=== PATIENT | male | born 1950 | race Caucasian/White ===

== ENCOUNTER → 2021-09-04 | Outpatient (CLI) | payer MEDICARE ==
--- NOTE | 2021-09-05 11:00 | ECHOF ---
Referral Reason:R01.1 Cardiac murmur MEASUREMENTS -------- HEIGHT: 172.7 cm WEIGHT: 81.6 kg BP: IVSd: 1.4 cm (0.6 - 1.1) LVIDd: 4.1 cm (3.9 - 5.3) LVPWd: 1.5 cm (0.6 - 1.1) IVSs: 1.7 cm LVIDs: 3.1 cm LVPWs: 1.6 cm LAESV Index (A-L): 25.46 ml/m Ao Diam: 3.1 cm (2.0 - 3.7) AV Cusp: 1.6 cm (1.5 - 2.6) LA Diam: 3.2 cm (2.7 - 3.8) MV EXCURSION: 10.933 mm (> 18.000) MV EF SLOPE: 52 mm/s (70 - 150) EPSS: 0.3 cm MV E Jim: 0.53 m/s MV DecT: 193 ms MV A Jim: 0.93 m/s MV E/A Ratio: 0.57 RAP: 5.00 mmHg RVSP: 22.99 mmHg FINDINGS -------- Sinus rhythm. This was a technically good study. The left ventricular size is normal. There is moderate concentric left ventricular hypertrophy. O verall left ventricular systolic function is low-normal with, an EF between 50 - 55 %. The right ventricle is normal in size. The left atrial size is normal. The right atrial size is normal. There is mild aortic valve sclerosis. There is no evidence of aortic regurgitation. Mild mitral regurgitation is present. Mild tricuspid regurgitation present. Right ventricular systolic pressure is normal at < 35 mmHg. The pulmonic valve was not well visualized. There is no pericardial effusion. CONCLUSIONS -------- 1. The left ventricular size is normal. 2. There is moderate concentric left ventricular hypertrophy. 3. Overall left ventricular systolic function is low-normal with, an EF between 50 - 55 %. 4. The right ventricle is normal in size. 5. The left atrial size is normal. 6. The right atrial size is normal. 7. There is mild aortic valve sclerosis. 8. Mild mitral regurgitation is present. 9. Mild tricuspid regurgitation present. 10. The pulmonic valve was not well visualized. 11. There is no pericardial effusion. NUTRITION HELPER: Huma June RDCS
== END | disposition home or self-care (01) ==
LOC: RADECHMAIN 16:23
PROVIDERS: ATTEND Family Medicine
DX: I08.3 Combined rheumatic disorders of mitral, aortic and tricuspid valves (principal)
CPT/HCPCS: 93306

== ENCOUNTER → 2021-09-09 | Outpatient (CLI) | payer MEDICARE ==
--- NOTE | 2021-09-09 10:24 | CTL ---
EXAMINATION TYPE: CT Low Dose Lung DATE OF EXAM ORDERED: 09/09/2021 HISTORY: 71-year-old male cough, history of tobacco use. Z87.891 Personal history of tobacco use. Chang g cancer screening CT DLP: 106.[address] CTDI: 2.8 mGy Automated exposure control for dose reduction was used. SCREENING VISIT: Baseline COMPARISON: None TECHNIQUE: Low dose computed tomography scan was performed through the chest with coronal and sagitta l reconstructions. CT DIAGNOSTIC QUALITY: Satisfactory FINDINGS: Heart normal size without pericardial effusion. Scattered three-vessel coronary artery calcifications are present. Mild ectasia ascending aorta 3.6 cm. Mild ectasia upper descending thoracic aorta 3.3 cm. Mild athero sclerotic arch calcifications. The metatarsal tarsal branching anatomy. No thoracic lymphadenopathy by CT size criteria. Scattered strandy areas of atelectasis such as within the inferior lingula and posterior right upper lobe. Mild diffuse bronchial wall thickening. Minimal centrilobular emphysema. Tiny calcified granulo ma at the left base. No suspicious greater than 4 mm pulmonary nodule seen. Tiny hiatal hernia. Slightly diminished attenuation of the hepatic parenchyma suggesting fatty infiltration. Bones: [facility] throughout the mid and lower thoracic spine. IMPRESSION: 1. LungRADS 2, Benign - a tiny calcified granuloma at the left base. Minimal strandy areas of atelect asis. 2. COPD with minimal emphysema. Recommend smoking cessation. 3. Three-vessel coronary artery calcifications. CT LUNG RAD AND CT CHEST RECOMMENDATION: Lung-Rad 2 Benign Appearance or Behavior: Continue annual sc reening with LDCT in 12 months.
== END | disposition home or self-care (01) ==
LOC: RADCTMAIN 07:28
PROVIDERS: ATTEND Family Medicine
DX: Z12.2 Encounter for screening for malignant neoplasm of respiratory organs (principal); J43.9 Emphysema, unspecified; I25.10 Atherosclerotic heart disease of native coronary artery without angina pectoris; J84.10 Pulmonary fibrosis, unspecified; J98.11 Atelectasis; Z87.891 Personal history of nicotine dependence
CPT/HCPCS: 71271

== ENCOUNTER 2022-09-23 21:58 | Inpatient (IN) | payer MEDICARE ==
[2022-09-23] MEDS ORDERED: SODIUM CHLORIDE 0.9% 500 ML 500 ML IV STA (22:41)
[2022-09-23] MEDS ORDERED: HYDROmorphone 0.5 MG/0.5 ML SYRINGE IVP STA ×2 (22:42→23:45)
--- NOTE | 2022-09-23 22:46 | ED ---
"Abdominal Pain HPI - General Chief Complaint: Abdominal Pain Stated Complaint: Abd Pain Time Seen by Provider: 09/23/22 22:34 Source: patient, family, RN notes reviewed, old records reviewed Mode of arrival: ambulatory Limitations: no limitations - History of Present Illness Initial Comments: 72-year-old male presents with family complaining of diffuse abdominal pain since New Year'. Has not had bowel movement in several days. Did have a small liquid bowel movement today. One episode of vomiting that looked like phlegm today. Denies any fevers. He states he is also having problems urinating. Family at bedside states he had catheters left over from his father that they tried to insert but the patient could not tolerate the pain. He has a history of hypertension and GERD. He is a smoker. No previous surgical history. MD Complaint: abdominal pain -: days(s) (3) Location: diffuse Radiation: none Severity scale (1-10): 9 Quality: fullness Consistency: constant Worsens With: nothing Associated Symptoms: nausea, vomiting (once today), constipation Treatments Prior to Arrival: other (tried urinary catheter) - Related Data Allergies Allergy/AdvReac Type Severity Reaction Status Date / Time No Known Allergies Allergy Verified 09/23/22 22:20 Review of Systems ROS Statement: Those systems with pertinent positive or pertinent negative responses have been documented in the HPI. ROS Other: All systems not noted in ROS Statement are negative. Past Medical History Past Medical History: GERD/Reflux, Hypertension Past Surgical History: No Surgical Hx Reported Smoking Status: Current every day smoker Past Alcohol Use History: Daily Past Drug Use History: None Reported General Exam Limitations: no limitations General appearance: alert, in no apparent distress Head exam: Present: atraumatic, normocephalic Eye exam: Absent: conjunctival injection, periorbital swelling Neck exam: Absent: tenderness, meningismus Respiratory exam: Present: normal lung sounds bilaterally. Absent: respiratory distress, wheezes, rales, rhonchi, stridor, chest wall tenderness, accessory muscle use Cardiovascular Exam: Present: regular rate GI/Abdominal exam: Present: soft, distended, tenderness. Absent: guarding, rigid Extremities exam: Present: full ROM, normal capillary refill. Absent: tenderness, pedal edema, calf tenderness Back exam: Absent: tenderness, CVA tenderness (R), CVA tenderness (L), rash noted Neurological exam: Present: alert, oriented X3 Psychiatric exam: Present: normal affect, normal mood Skin exam: Present: warm, dry, normal color. Absent: cyanosis, diaphoretic, petechiae, pallor Course Vital Signs 09/23/22 22:14 Temperature 98.0 F Pulse Rate 81 Respiratory 18 Rate Blood Pressure 172/101 O2 Sat by Pulse 97 Oximetry Medical Decision Making - Medical Decision Making CT interpreted by me shows a markedly distended bladder, no intestinal obstruction. Radiologist's interpretation marked dilated urinary bladder with retroperitoneal edema in bilateral hydronephrosis and hydroureter. No stones seen. Consistent with chronic bladder outlet obstruction. Prostate is large and measures 6 cm. No evidence of leukocytosis patient denies any fevers. Urinalysis does show evidence of urinary tract infection therefore patient will be given Rocephin. |Patient will be admitted to the hospital with YUNI, urinary retention with hydronephrosis and perinephric edema. Urology was placed on consult Patient is agreeable to this plan of care. Case discussed with Dr. Hills Was pt. sent in by a medical professional or institution? @ -No Did you speak to anyone other than the patient for history? @ -Family Did you review nursing and triage notes? @ -Yes I agree Were old charts reviewed? @ -Yes previous labs Differential Diagnosis? @ -Differential Abdominal Pain Men: Appendicitis, cholecystitis, diverticulosis, ischemic bowel, pancreatitis, hepatitis, UTI, gastroenteritis, AAA, incarcerated hernia, bowel obstruction, constipation, inflammatory bowel, hepatitis, peptic ulcer disease, splenic infarction, perforated viscus, testicular torsion, this is not meant to be an all-inclusive list EKG interpreted by me (3pts min.)? @ -Not applicable X-rays interpreted by me (1pt min.)? @ -Not applicable CT interpreted by me (1pt min.)? @ -Yes see above U/S interpreted by me (1pt. min.)? @ -Not applicable What testing was considered but not performed? (CT, X-rays, U/S, labs)? Why? @CT with contrast was considered however patient states that his primary care doctor has been watching his renal function, patient found to have YUNI What meds were considered but not given? Why? @ -None Did you discuss the management of the patient with other professionals? @ -No Did you reconcile home meds? @ -No Was smoking cessation discussed for >3mins.? @ -Yes patient states that he did quit the first of the year Was critical care preformed (if so, how long)? @ -No Were there social determinants of health that impacted care today? How? (Homelessness, low income, unemployed, alcoholism, drug addiction, transportation, low edu. Level, literacy, decrease access to med. care, fdc, rehab)? @ -None Was there de-escalation of care discussed even if they declined? (Discuss DNR or withdrawal of care, Hospice)? @ -None What co-morbidities impacted this encounter? (DM, HTN, Smoking, COPD, CAD, C ancer, CVA, Hep., AIDS, mental health diagnosis, sleep apnea, morbid obesity)? @ -Smoking, hypertension Was patient admitted / discharged? @ -Admitted Undiagnosed new problem with uncertain prognosis? @ -Urinary retention, acute kidney injury Drug Therapy requiring intensive monitoring for toxicity (Heparin, Nitro, Insulin, Cardizem)? @ -No Were any procedures done? @ -No Diagnosis/symptom? @ -Urinary retention, acute kidney injury, hydronephrosis bilateral Acute, or Chronic, or Acute on Chronic? @ -Acute Uncomplicated (without systemic symptoms) or Complicated (systemic symptoms)? @ -[default] Side effects of treatment? @ -[none] Exacerbation, Progression, or Severe Exacerbation] @ -[no] Poses a threat to life or bodily function? @ -[no] - Lab Data Result diagrams: 09/23/22 23:12 09/23/22 23:12 Lab Results 09/23/22 09/23/22 09/23/22 Range/Units 22:47 23:12 23:12 WBC 12.0 H (3.8-10.6) k/uL RBC 4.24 L (4.30-5.90) m/uL Hgb 13.7 (13.0-17.5) gm/dL Hct 39.5 (39.0-53.0) % MCV 93.0 (80.0-100.0) fL MCH 32.3 (25.0-35.0) pg MCHC 34.7 (31.0-37.0) g/dL RDW 12.5 (11.5-15.5) % Plt Count 212 (150-450) k/uL MPV 8.2 Neutrophils % 76 % Lymphocytes % 13 % Monocytes % 8 % Eosinophils % 2 % Basophils % 0 % Neutrophils # 9.1 H (1.3-7.7) k/uL Lymphocytes # 1.6 (1.0-4.8) k/uL Monocytes # 0.9 (0-1.0) k/uL Eosinophils # 0.2 (0-0.7) k/uL Basophils # 0.1 (0-0.2) k/uL PT 10.0 (9.0-12.0) sec INR 0.9 (<1.2) APTT 23.8 (22.0-30.0) sec Sodium (137-145) mmol/L Potassium (3.5-5.1) mmol/L Chloride (98-107) mmol/L Carbon Dioxide (22-30) mmol/L Anion Gap mmol/L BUN (9-20) mg/dL Creatinine (0.66-1.25) mg/dL Est GFR (CKD-EPI)AfAm (>60 ml/min/1.73 sqM) Est GFR (CKD-EPI)NonAf (>60 ml/min/1.73 sqM) Glucose (74-99) mg/dL Plasma Lactic Acid Jesse (0.7-2.0) mmol/L Calcium (8.4-10.2) mg/dL Magnesium (1.6-2.3) mg/dL Total Bilirubin (0.2-1.3) mg/dL AST (17-59) U/L ALT (4-49) U/L Alkaline Phosphatase (38-126) U/L Total Protein (6.3-8.2) g/dL Albumin (3.5-5.0) g/dL Amylase (30-110) U/L Lipase (23-300) U/L Urine Color Yellow Urine Appearance Clear (Clear) Urine pH 5.5 (5.0-8.0) Ur Specific [place] 1.011 (1.001-1.035) Urine Protein Negative (Negative) Urine Glucose (UA) Negative (Negative) Urine Ketones Negative (Negative) Urine Blood Trace H (Negative) Urine Nitrite Negative (Negative) Urine Bilirubin Negative (Negative) Urine Urobilinogen <2.0 (<2.0) mg/dL Ur Leukocyte Esterase Small H (Negative) Urine RBC 1 (0-5) /hpf Urine WBC 6 H (0-5) /hpf Urine WBC Clumps Rare H (None) /hpf Ur Squamous Epith Cells <1 (0-4) /hpf Urine Bacteria Rare H (None) /hpf Hyaline Casts 1 (0-2) /lpf Urine Mucus Rare H (None) /hpf 09/23/22 09/23/22 Range/Units 23:12 23:12 WBC (3.8-10.6) k/uL RBC (4.30-5.90) m/uL Hgb (13.0-17.5) gm/dL Hct (39.0-53.0) % MCV (80.0-100.0) fL MCH (25.0-35.0) pg MCHC (31.0-37.0) g/dL RDW (11.5-15.5) % Plt Count (150-450) k/uL MPV Neutrophils % % Lymphocytes % % Monocytes % % Eosinophils % % Basophils % % Neutrophils # (1.3-7.7) k/uL Lymphocytes # (1.0-4.8) k/uL Monocytes # (0-1.0) k/uL Eosinophils # (0-0.7) k/uL Basophils # (0-0.2) k/uL PT (9.0-12.0) sec INR (<1.2) APTT (22.0-30.0) sec Sodium 134 L (137-145) mmol/L Potassium 4.1 (3.5-5.1) mmol/L Chloride 101 (98-107) mmol/L Carbon Dioxide 19 L (22-30) mmol/L Anion Gap 14 mmol/L BUN 38 H (9-20) mg/dL Creatinine 3.38 H (0.66-1.25) mg/dL Est GFR (CKD-EPI)AfAm 20 (>60 ml/min/1.73 sqM) Est GFR (CKD-EPI)NonAf 17 (>60 ml/min/1.73 sqM) Glucose 149 H (74-99) mg/dL Plasma Lactic Acid Jesse 1.1 (0.7-2.0) mmol/L Calcium 9.4 (8.4-10.2) mg/dL Magnesium 2.2 (1.6-2.3) mg/dL Total Bilirubin 1.1 (0.2-1.3) mg/dL AST 50 (17-59) U/L ALT 34 (4-49) U/L Alkaline Phosphatase 62 (38-126) U/L Total Protein 7.4 (6.3-8.2) g/dL Albumin 4.6 (3.5-5.0) g/dL Amylase 78 (30-110) U/L Lipase 193 (23-300) U/L Urine Color Urine Appearance (Clear) Urine pH (5.0-8.0) Ur Specific [place] (1.001-1.035) Urine Protein (Negative) Urine Glucose (UA) (Negative) Urine Ketones (Negative) Urine Blood (Negative) Urine Nitrite (Negative) Urine Bilirubin (Negative) Urine Urobilinogen (<2.0) mg/dL Ur Leukocyte Esterase (Negative) Urine RBC (0-5) /hpf Urine WBC (0-5) /hpf Urine WBC Clumps (None) /hpf Ur Squamous Epith Cells (0-4) /hpf Urine Bacteria (None) /hpf Hyaline Casts (0-2) /lpf Urine Mucus (None) /hpf Disposition Clinical Impression: Urinary retention, Acute kidney injury Disposition: ADMITTED IP TO THIS HOSP Referrals: Roxanne De Luna MD [Primary Care Provider] - 1-2 days Decision Date: 09/23/22 Decision Time: 23:50"
[2022-09-23] MEDS ORDERED: PANTOPRAZOLE 40 MG/10 ML VIAL IVP STA (22:47)
[2022-09-23] MEDS ORDERED: ONDANSETRON 4 MG/2 ML VIAL IVP STA (22:47)
[2022-09-23 23:35] LABS: Basophils # (A) 0.1 k/uL (0-0.2); Basophils % (A) 0 %; Eosinophils # (A) 0.2 k/uL (0-0.7); Eosinophils % (A) 2 %; HCT 39.5 % (39.0-53.0); HGB 13.7 gm/dL (13.0-17.5); Lymphocytes # (A) 1.6 k/uL (1.0-4.8); Lymphocytes % (A) 13 %; MCH 32.3 pg (25.0-35.0); MCHC 34.7 g/dL (31.0-37.0); Mean Platelet Volume 8.2; Monocytes # (A) 0.9 k/uL (0-1.0); Monocytes % (A) 8 %; Neutrophils # (A) 9.1 k/uL (1.3-7.7); Neutrophils % (A) 76 %; Platelet Count 212 k/uL (150-450); RBC 4.24 m/uL (4.30-5.90); RDW 12.5 % (11.5-15.5)
--- NOTE | 2022-09-23 23:42 | CT ---
EXAMINATION TYPE: CT abdomen pelvis wo con DATE OF EXAM: 09/23/2022 COMPARISON: None HISTORY: left lower abd pain CT DLP: 649.6 mGycm Automated exposure control for dose reduction was used. Images obtained of the abdomen and pelvis without contrast. Lung bases are clear. No pleural effusion. Heart size is normal. No pericardial effusion. Liver splee n and stomach pancreas, bladder appear intact. The bile ducts are not dilated. There is no adrenal mass. There is bilateral hydronephrosis and perinephric edema. There is retroperi toneal fat stranding. Urinary bladder is moderately dilated and measures 22 cm. No inguinal hernia. T here is some presacral edema. No pelvic mass. There is no mesenteric edema. No ascites or free air. No sign of a bowel obstruction. Appendix appear s normal. The lumbar vertebra show normal alignment. There is degenerative disc space narrowing from L3 to S1 w ith spurring and vacuum disc. There is posterior disc herniations from L2 to L5. There is mild lobula r level spinal stenosis. Bony pelvis is intact. The hip joints are intact. IMPRESSION: There is markedly dilated urinary bladder. There is retroperitoneal edema and bilateral hydronephrosi s and hydroureter. No stone seen. This is consistent with chronic bladder outlet obstruction. Prostate is large and measures 6 cm. Multilevel spondylotic changes and lumbar spinal stenosis.
[2022-09-23 23:44] LABS: INR 0.9 (<1.2); Partial Thromboplastin Time 23.8 sec (22.0-30.0)
[2022-09-23] MEDS ORDERED: LIDOCAINE 2% URO-JET JELLY 5 ML KIT URETHRAL ONE (23:45)
[2022-09-23 23:48] LABS: Albumin 4.6 g/dL (3.5-5.0); Calcium 9.4 mg/dL (8.4-10.2); Magnesium 2.2 mg/dL (1.6-2.3); Potassium 4.1 mmol/L (3.5-5.1); Total Bilirubin 1.1 mg/dL (0.2-1.3); Total Protein 7.4 g/dL (6.3-8.2)
[2022-09-24 00:04] LABS: Appearance,Urine Clear (Clear); Bacteria,Urine Rare /hpf; Bilirubin,Urine Negative (Negative); Blood,Urine Trace (Negative); Color,Urine Yellow; Glucose,Urine (UA) Negative (Negative); Hyaline Casts,Urine 1 /lpf (0-2); Ketones,Urine Negative (Negative); Leukocyte Esterase,Urine Small (Negative); Mucus,Urine Rare /hpf; Nitrite,Urine Negative (Negative); PH, Urine 5.5 (5.0-8.0); Protein,Urine Negative (Negative); RBC,Urine 1 /hpf (0-5); Specific Gravity,Urine 1.011 (1.001-1.035); Squamous Epithelial Cell,Urine <1 /hpf (0-4); Urobilinogen,Urine <2.0 mg/dL (<2.0); WBC,Urine 6 /hpf (0-5)
[2022-09-24] MEDS ORDERED: cefTRIAXone IN SWFI 1,000 MG/10 ML SYRINGE IVP ONE (00:30)
[2022-09-24] MEDS ORDERED: NALOXONE 0.4 MG/ML 1 ML VIAL IV PRN (00:30)
[2022-09-24] MEDS ORDERED: ACETAMINOPHEN TAB 325 MG TAB PO PRN (01:00)
[2022-09-24] MEDS ORDERED: HYDROmorphone 0.5 MG/0.5 ML SYRINGE IVP PRN (01:00)
[2022-09-24] MEDS ORDERED: TAMSULOSIN 0.4 MG CAP.ER.24H PO SCH (09:15)
--- NOTE | 2022-09-24 09:24 | P.GSCN ---
History of Present Illness Consult date: 09/24/22 Reason for Consult: Urinary retention Requesting physician: Jaswant Yousif History of present illness: The patient is a 72-year-old male with a past medical history significant for hypertension, and GERD. He presented to the emergency department on 09/23/22 with diffuse abdominal pain for 3 days and associated nausea and vomiting. He has not had a bowel movement in several days. Abdomen/pelvis CT revealed a markedly dilated urinary bladder. There is retroperitoneal edema and bilateral hydronephrosis and hydroureter. No stones were seen. The prostate is large and measures 6 cm. A Huang catheter was placed with 1,575 mL urine returned. Review of Systems - Constitutional Denies chills, Denies fever - Cardiovascular Denies chest pain, Denies shortness of breath - Respiratory Denies cough - Gastrointestinal Reports abdominal pain, Reports constipation, Reports nausea, Reports vomiting - Genitourinary Reports nocturia, Reports urinary hesitancy, Reports urinary retention, Denies dysuria, Denies flank pain, Denies hematuria Past Medical History Past Medical History: GERD/Reflux, Hypertension Past Surgical History: No Surgical Hx Reported Smoking Status: Current every day smoker Past Alcohol Use History: Daily Past Drug Use History: None Reported Medications and Allergies Home Medications Medication Instructions Recorded Confirmed Type Acetaminophen Tab [Tylenol] 650 mg PO Q6HR PRN tab 09/24/22 Rx Cefuroxime [Ceftin] 500 mg PO BID 5 Days #10 tab 09/24/22 Rx Omeprazole [PriLOSEC] 20 mg PO DAILY 09/24/22 09/24/22 History Sennosides [Senokot] 8.6 mg PO BID PRN #30 tablet 09/24/22 Rx Tamsulosin [Flomax] 0.4 mg PO PC-BRKFST 30 Days #30 cap 09/24/22 Rx amLODIPine [Norvasc] 10 mg PO DAILY 30 Days #30 tablet 09/24/22 Rx Allergies Allergy/AdvReac Type Severity Reaction Status Date / Time No Known Allergies Allergy Verified 09/24/22 08:19 Surgical - Exam Vital Signs Temp Pulse Resp BP Pulse Ox 98.0 F 81 18 172/101 97 09/23/22 22:14 09/23/22 22:14 09/23/22 22:14 09/23/22 22:14 01/03/23 22:14 General: Well developed, well nourished. No acute distress. HEENT: Head is atraumatic, normocephalic. Lungs: Respirations even and nonlabored. Abdomen/GI: Soft. No guarding, rigidity, or abdominal tenderness. : No suprapubic tenderness. Huang catheter draining clear yellow urine Skin: Warm and dry Neurologic: Awake, alert and oriented times 3. CN II-XII grossly intact. No focal deficits. Psychiatric: Appropriate mood and affect. Results - Labs 09/23/22 23:12 09/24/22 12:32 Abnormal Lab Results - Last 24 Hours (Table) 09/23/22 09/23/22 09/23/22 Range/Units 22:47 23:12 23:12 WBC 12.0 H (3.8-10.6) k/uL RBC 4.24 L (4.30-5.90) m/uL Neutrophils # 9.1 H (1.3-7.7) k/uL Sodium 134 L (137-145) mmol/L Carbon Dioxide 19 L (22-30) mmol/L BUN 38 H (9-20) mg/dL Creatinine 3.38 H (0.66-1.25) mg/dL Glucose 149 H (74-99) mg/dL Urine Blood Trace H (Negative) Ur Leukocyte Esterase Small H (Negative) Urine WBC 6 H (0-5) /hpf Urine WBC Clumps Rare H (None) /hpf Urine Bacteria Rare H (None) /hpf Urine Mucus Rare H (None) /hpf Diabetes panel 09/23/22 Range/Units 23:12 Sodium 134 L (137-145) mmol/L Potassium 4.1 (3.5-5.1) mmol/L Chloride 101 (98-107) mmol/L Carbon Dioxide 19 L (22-30) mmol/L BUN 38 H (9-20) mg/dL Creatinine 3.38 H (0.66-1.25) mg/dL Glucose 149 H (74-99) mg/dL Calcium 9.4 (8.4-10.2) mg/dL AST 50 (17-59) U/L ALT 34 (4-49) U/L Alkaline Phosphatase 62 (38-126) U/L Total Protein 7.4 (6.3-8.2) g/dL Albumin 4.6 (3.5-5.0) g/dL Calcium panel 09/23/22 Range/Units 23:12 Calcium 9.4 (8.4-10.2) mg/dL Albumin 4.6 (3.5-5.0) g/dL Pituitary panel 09/23/22 Range/Units 23:12 Sodium 134 L (137-145) mmol/L Potassium 4.1 (3.5-5.1) mmol/L Chloride 101 (98-107) mmol/L Carbon Dioxide 19 L (22-30) mmol/L BUN 38 H (9-20) mg/dL Creatinine 3.38 H (0.66-1.25) mg/dL Glucose 149 H (74-99) mg/dL Calcium 9.4 (8.4-10.2) mg/dL Adrenal panel 09/23/22 Range/Units 23:12 Sodium 134 L (137-145) mmol/L Potassium 4.1 (3.5-5.1) mmol/L Chloride 101 (98-107) mmol/L Carbon Dioxide 19 L (22-30) mmol/L BUN 38 H (9-20) mg/dL Creatinine 3.38 H (0.66-1.25) mg/dL Glucose 149 H (74-99) mg/dL Calcium 9.4 (8.4-10.2) mg/dL Total Bilirubin 1.1 (0.2-1.3) mg/dL AST 50 (17-59) U/L ALT 34 (4-49) U/L Alkaline Phosphatase 62 (38-126) U/L Total Protein 7.4 (6.3-8.2) g/dL Albumin 4.6 (3.5-5.0) g/dL - Imaging CT scan - abdomen: report reviewed, image reviewed CT scan - pelvis: report reviewed, image reviewed Assessment and Plan Assessment: The patient was examined in the emergency department. The patient reports urinary hesitancy with an interrupted stream and some leakage. He also feels as if he is not emptying his bladder completely. The patient reports being on Flomax in the past. However, he stopped taking it when he moved to [place] approximately 2 years ago. He previously saw a urologist in [place]. No prior surgeries. His urinalysis does not suggest infection. The patient's serum creatinine is 3.38, up from 1.1 in 07/12. Dr. Elkins performed a digital rectal exam and the prostate is approximately 40g. The patient's YUNI and bilateral hydronephrosis is likely a result of outlet obstruction caused by his enlarged prostate. Plan: - Start Flomax - Keep Huang catheter for a couple days - Voiding trial before discharge - Monitor serum creatinine Thank you for this consultation Impression and plan of care have been directed as dictated by the signing physician. Yeni Burnett nurse practitioner acting as scribe for signing physician. Yeni Bunrett [facility] Palliative Care/Urology Spectralink [phone] Email: [email or web address] The above patient has been interviewed and examined. I agree with the above findings by Yeni Burnett. Ángel Elkins MD
[2022-09-24 13:31] LABS: African American GFR (CKD) 43 (>60 ml/min/1.73 sqM); Anion Gap 4 mmol/L; Blood Urea Nitrogen 30 mg/dL (9-20); Carbon Dioxide 26 mmol/L (22-30); Chloride 107 mmol/L (98-107); Glucose 72 mg/dL (74-99); Non-African American GFR(CKD) 37 (>60 ml/min/1.73 sqM); Potassium 4.3 mmol/L (3.5-5.1); Sodium 137 mmol/L (137-145)
[2022-09-24 14:34] VITALS: BP 131/72; PULSE 76; RESP 18; TEMP 98.7
--- NOTE | 2022-09-24 18:24 | HP ---
HISTORY AND PHYSICAL This is a combined History and Physical and Discharge Summary. CHIEF COMPLAINT: Abdominal pain. HISTORY OF PRESENT ILLNESS: This is a 72-year-old gentleman with a past medical history of GERD and hypertension, who was admitted with abdominal pain. The patient was evaluated, and CT scan of the abdomen and pelvis showed markedly dilated urinary bladder and bilateral hydronephrosis and hydroureter. Urology saw the patient. A catheter was inserted, and Urology cleared the patient for discharge. The patient is extremely keen on going home. Also, creatinine is elevated. There is no history of any fever, rigors, or chills at this time. The patient's abdomen is much better. PAST MEDICAL HISTORY: Reviewed includes GERD and hypertension. Rest of the history and rest of the medications are reviewed. HOME MEDICATIONS: Reviewed include losartan and Keflex antibiotic. Rest of the medications are reviewed. ALLERGIES: None. FAMILY HISTORY: No history of heart disease or strokes in the family. SOCIAL HISTORY: History of current smoking. Alcohol daily. REVIEW OF SYSTEMS: Fourteen-point review is negative except as mentioned earlier. PHYSICAL EXAMINATION: VITAL SIGNS: Pulse is 71, blood pressure 144/80, respirations 16. HEENT: Conjunctivae are normal. NECK: No jugular venous distention. CARDIOVASCULAR: S1 and S2 muffled. RESPIRATORY: Breath sounds diminished at the bases. Few scattered rhonchi. ABDOMEN: Soft and nontender. No masses palpable. LEGS: No edema. NERVOUS SYSTEM: No focal deficits. SKIN: No ulcers or rashes. JOINTS: No active deforming arthropathy. LABORATORY DATA: WBC 12. The rest of the labs are noted. ASSESSMENT: 1. Acute obstructive uropathy. 2. Acute renal failure secondary to obstructive uropathy. 3. Acute urinary tract infection. 4. Gastroesophageal reflux disease. 5. Hypertension. 6. History of nicotine dependence. 7. History of possible EtOH. RECOMMENDATIONS: This is a 72-year-old gentleman, who presented with multiple complex medical issues. I recommend to continue the current medications and symptomatic treatment, continue with Flomax, and continue with indwelling Huang catheter. As mentioned earlier, the patient is extremely keen on going home and not willing to stay. I would recommend close followup with Nephrology and Urology as well as Dr. De Luna in the outpatient setting. Avoid nephrotoxic medications. Continue short course of antibiotics. Repeat labs, CBC and BMP. Continue to monitor. Once again, prognosis is guarded. Further recommendations to follow. Recommend close outpatient followup. Urology already cleared the patient for discharge. MMODL / IJN: [id number] /
== END 2022-09-24 14:34 | disposition home or self-care (01) | DRG 690 ==
LOC: EC 21:58 → 5NMEDONC 23:54
PROVIDERS: ADMIT Hospitalist; ATTEND Hospitalist
PROC: 0T9B70Z Drainage of Bladder with Drainage Device, Via Natural or Artificial Opening (ICD-10-PCS; principal; 2022-09-23)
DX: N13.6 Pyonephrosis (principal); N17.9 Acute kidney failure, unspecified; I10 Essential (primary) hypertension; N32.0 Bladder-neck obstruction; Z79.899 Other long term (current) drug therapy; N40.1 Benign prostatic hyperplasia with lower urinary tract symptoms; R33.8 Other retention of urine; K21.9 Gastro-esophageal reflux disease without esophagitis; F17.210 Nicotine dependence, cigarettes, uncomplicated; Z86.59 Personal history of other mental and behavioral disorders
CPT/HCPCS: 36415; 51702; 51798; 74176; 80048; 80053; 81001; 82150; 83605; 83690; 83735; 85025; 85610; 85730; 96361; 96374; 96375; 99285; 99406

== ENCOUNTER → 2022-09-30 | Outpatient (CLI) | payer MEDICARE ==
[2022-09-30 14:16] LABS: Basophils # (A) 0.07 X 10*3/uL (0.00-0.10); Basophils % (A) 1.1 %; Eosinophils # (A) 0.28 X 10*3/uL (0.04-0.35); Eosinophils % (A) 4.5 %; HCT 39.9 % (39.6-50.0); HGB 12.9 g/dL (13.0-17.0); Immature Grans, Automated 0.6 %; Lymphocytes # (A) 2.19 X 10*3/uL (0.90-5.00); Lymphocytes % (A) 34.8 %; MCH 31.3 pg (27.0-32.0); MCHC 32.3 g/dL (32.0-37.0); MCV 96.8 fL (80.0-97.0); Monocytes # (A) 0.67 X 10*3/uL (0.20-1.00); Monocytes % (A) 10.7 %; NRBC Per 100 WBC 0 /100 WBCS (0.0-0.0); Neutrophils # (A) 3.04 X 10*3/uL (1.80-7.70); Neutrophils % (A) 48.3 %; Platelet Count 258 X 10*3/uL (140-440); RBC 4.12 X 10*6/uL (4.40-5.60); RDW 12.5 % (11.5-14.5); WBC 6.29 X 10*3/uL (4.50-10.00)
== END | disposition home or self-care (01) ==
LOC: LABWHC1 08:29
PROVIDERS: ATTEND Registered Nurse
DX: D72.829 Elevated white blood cell count, unspecified (principal); R79.89 Other specified abnormal findings of blood chemistry
CPT/HCPCS: 36415; 85025

== ENCOUNTER → 2022-10-02 | Outpatient (CLI) | payer MEDICARE ==
--- NOTE | 2022-10-02 09:57 | CTL ---
EXAMINATION TYPE: CT Low Dose Lung DATE OF EXAM ORDERED: 10/02/2022 HISTORY: [facility] tobacco use. Lung cancer screening CT DLP: 94.[address] CTDI: 2.7 mGy Automated exposure control for dose reduction was used. SCREENING VISIT: First after baseline. COMPARISON: Prior study 2020. TECHNIQUE: Low dose computed tomography scan was performed through the chest at 1 mm thick sections a nd reconstructed images in multiple planes at 1 mm and [address] DIAGNOSTIC QUALITY: Satisfactory FINDINGS: LUNG NODULES: Present, detailed below: A few scattered small nodules are seen. For reference is a 2 mm peripheral left lower lobe nodule axi al image 198. There is additional 2 mm calcified nodule or benign granuloma left lung base on axial i mage 215. No significant greater than 5 mm noncalcified pulmonary nodules LUNGS: COPD: Severity: Mild Fibrosis: Severity: Minimal Lymph nodes: No greater than 1 cm Other findings: None RIGHT PLEURAL SPACE: Effusion: None Calcification: None Thickening: None Pneumothorax: None LEFT PLEURAL SPACE: Effusion: None Calcification: None Thickening: None Pneumothorax: None HEART: Heart Size: Normal Coronary Calcification: Moderate to severe three-vessel Pericardial Effusion: None OTHER FINDINGS: Upper abdomen: The liver remains slightly hypodense suggesting diffuse fatty infiltration. Bony thorax: Multilevel spurring in the thoracic spine is redemonstrated. Supraclavicular region: None Other: None IMPRESSION: Mild emphysematous change without significant new or enlarging greater than 5 [address] pulmonar y nodules. CT LUNG RAD AND CT CHEST RECOMMENDATION: Lung-Rad 2 Benign Appearance or Behavior: Continue annual sc reening with LDCT in 12 months. S Modifier (other clinically significant findings): S Persistent moderate to severe three-vessel coronary artery calcification which should be correlated w ith additional cardiac risk factors
== END | disposition home or self-care (01) ==
LOC: RADCTMAIN 08:01
PROVIDERS: ATTEND Family Medicine
DX: Z12.2 Encounter for screening for malignant neoplasm of respiratory organs (principal); Z87.891 Personal history of nicotine dependence; J43.2 Centrilobular emphysema
CPT/HCPCS: 71271

== ENCOUNTER → 2023-02-12 | Outpatient (CLI) | payer MEDICARE ==
--- NOTE | 2023-02-12 15:04 | US ---
EXAMINATION TYPE: US venous doppler duplex LE RT DATE OF EXAM: 02/12/2023 2:56 PM COMPARISON: NONE CLINICAL INDICATION: Male, 72 years old with history of R22.41 SWELLING, MASS AND LUMP; No injury. Sw elling x 1 week. Pain x 1 day. No hx of DVT. Patient does not take blood thinners. SIDE PERFORMED: Right TECHNIQUE: The lower extremity deep venous system is examined utilizing real time linear array sonog elyse with graded compression, doppler sonography and color-flow sonography. VESSELS IMAGED: Common Femoral Vein Deep Femoral Vein Greater Saphenous Vein * Femoral Vein Popliteal Vein Small Saphenous Vein * Proximal Calf Veins Posterior tibial veins (* superficial vessels) Right Leg: No evidence of DVT at this time. Anechoic fluid-appearing area seen within the medial, mid calf: 2.2 x 2.2 x 0.4 cm. Calf edema noted. IMPRESSION: 1. Small Mclaughlin cyst suggested measuring 2.2 x 0.4 cm. Additional edematous change within the calf sof t tissues. Consider the possibility of a ruptured Mcluaghlin's cyst. 2. No evidence for DVT within the right lower extremity.
== END | disposition home or self-care (01) ==
LOC: RADUSWWP 14:10
PROVIDERS: ATTEND Family Medicine
DX: R22.41 Localized swelling, mass and lump, right lower limb (principal)

== ENCOUNTER → 2023-02-27 | Outpatient (CLI) | payer MEDICARE ==
--- NOTE | 2023-02-27 13:36 | US ---
EXAMINATION TYPE: US venous doppler duplex LE RT DATE OF EXAM: 02/27/2023 1:09 PM COMPARISON: Recent US 02/12/2023 CLINICAL INDICATION: Male, 72 years old with history of RLE; M79.661; R22.41; Increasing right leg pa in and swelling SIDE PERFORMED: Right TECHNIQUE: The lower extremity deep venous system is examined utilizing real time linear array sonog elyse with graded compression, doppler sonography and color-flow sonography. VESSELS IMAGED: Common Femoral Vein Deep Femoral Vein Greater Saphenous Vein * Femoral Vein Popliteal Vein Small Saphenous Vein * Proximal Calf Veins (* superficial vessels) Right Leg: Negative for DVT, fluid collection posterior/medial right calf has significantly increase d in size when compared to prior= 11.7 x 2.4 x 8.6 cm- this in area of pt's pain IMPRESSION: Large fluid collection within the posterior medial right calf suspicious for hematoma/se marisela. Consider MRI as clinically warranted for further evaluation. Correlate with history of anticoag ulation.
== END | disposition home or self-care (01) ==
LOC: RADUSWWP 12:45
PROVIDERS: ATTEND Family Medicine
DX: M79.661 Pain in right lower leg (principal); R22.41 Localized swelling, mass and lump, right lower limb

== ENCOUNTER → 2023-03-17 | Outpatient (CLI) | payer MEDICARE ==
--- NOTE | 2023-03-18 10:39 | CA ---
Transthoracic Echo Report Name: Adrián Portillo Age: 72 Gender: M : 1950 Exam Date: 03/17/2023 12:56 Exam Location: [facility] Ht (in): 68 Wt (lb): 180 Ordering Physician: Roxanne De Luna MD Attending/Referring Phys: Cathleen Hammond [facility] Engineering Lecturer Natasha Huang RDCS Procedure CPT: Indications: I34.0 R22.41 Cardiac Hx: Technical Quality: Fair Contrast 1: Total Dose (mL): Contrast 2: Total Dose (mL): MEASUREMENTS (Male / Female) Normal Values 2D ECHO LV Diastolic Diameter PLAX 4.5 cm 4.2 - 5.9 / 3.9 - 5.3 cm LV Systolic Diameter PLAX 2.7 cm IVS Diastolic Thickness 1.2 cm 0.6 - 1.0 / 0.6 - 0.9 cm LVPW Diastolic Thickness 1.2 cm 0.6 - 1.0 / 0.6 - 0.9 cm LV Relative Wall Thickness 0.5 RV Internal Dim ED PLAX 2.9 cm LA Systolic Diameter LX 3.4 cm 3.0 - 4.0 / 2.7 - 3.8 cm LV Diastolic Volume MOD 4C 100.9 cm??? LV Systolic Volume MOD 4C 35.9 cm??? LV Ejection Fraction MOD 4C 64.5 % LV Cardiac Index MOD 4C 2379.1 cm???/min???m??? LV Diastolic Length 4C 8.5 cm LV Systolic Length 4C 6.7 cm LV Diastolic Volume MOD 2C 84.7 cm??? LV Systolic Volume MOD 2C 27.4 cm??? LV Ejection Fraction MOD 2C 67.7 % LV Cardiac Index MOD 2C 2098.0 cm???/min???m??? LV Diastolic Length 2C 8.3 cm LV Systolic Length 2C 6.6 cm LA Volume 50.6 cm??? 18 - 58 / 22 - 52 cm??? M-MODE Aortic Root Diameter MM 3.1 cm MV E Point Septal Separation 0.5 cm AV Cusp Separation MM 1.9 cm DOPPLER AV Peak Velocity 154.7 cm/s AV Peak Gradient 9.6 mmHg MV Area PHT 3.0 cm??? Mitral E Point Velocity 64.8 cm/s Mitral A Point Velocity 111.1 cm/s Mitral E to A Ratio 0.6 MV Deceleration Time 254.5 ms MV E' Velocity 5.1 cm/s Mitral E to MV E' Ratio 12.6 TR Peak Velocity 233.4 cm/s TR Peak Gradient 21.8 mmHg Right Ventricular Systolic Press 26.2 mmHg FINDINGS Left Ventricle Left ventricular ejection fraction is estimated at 55-60 %. Left ventricular cavity size normal. Borderline left ventricular hypertrophy. Normal left ventricular wall motion. Right Ventricle Normal right ventricular size and function. Right ventricular systolic pressure within normal limits. Right Atrium Normal right atrial size. Left Atrium Normal left atrial size. Mitral Valve Structurally normal mitral valve. No mitral stenosis, regurgitation or prolapse. Aortic Valve Aortic valve sclerosis. No aortic valve stenosis or regurgitation. Tricuspid Valve Structurally normal tricuspid valve. Trace tricuspid regurgitation. Pulmonic Valve Structurally normal pulmonic valve. Trace to mild pulmonic regurgitation. Pericardium Normal pericardium. No pericardial effusion. Aorta Normal size aortic root and proximal ascending aorta. CONCLUSIONS Normal LV size and systolic function. Borderline LVH. Mild mitral and tricuspid regurgitation no pericardial effusion no significant pulmonary hypertension Previewed by: Dr. Sergio Longo MD (Electronically Signed) Final Date: 18 March 2023 10:38
== END | disposition home or self-care (01) ==
LOC: RADECHMAIN 12:47
PROVIDERS: ATTEND Family Medicine
DX: I08.1 Rheumatic disorders of both mitral and tricuspid valves (principal); R22.41 Localized swelling, mass and lump, right lower limb
CPT/HCPCS: 93306

== ENCOUNTER → 2023-03-23 | Outpatient (CLI) | payer MEDICARE | END | disposition home or self-care (01) | LOC: LABWHC1 10:51 | PROVIDERS: ATTEND Orthopaedic Surgery | DX: Z53.9 Procedure and treatment not carried out, unspecified reason (principal) ==

== ENCOUNTER → 2023-10-03 | Outpatient (CLI) | payer MEDICARE ==
--- NOTE | 2023-10-04 10:56 | CTL ---
EXAMINATION TYPE: CT Low Dose Lung DATE OF EXAM ORDERED: 10/04/2023 HISTORY: . Lung cancer screening CT DLP: 103.[address] CTDI: 2.80 mGy Automated exposure control for dose reduction was used. SCREENING VISIT: Subsequent COMPARISON: 10/02/2022 TECHNIQUE: Low dose computed tomography scan was performed through the chest at 1 mm thick sections a nd reconstructed images in the coronal plane at [address] DIAGNOSTIC QUALITY: Satisfactory FINDINGS: LUNG NODULES: Present, detailed below: 1. Punctate density posterior lateral left lung, image 206, is stable. 2. Calcification above the left diaphragm is stable. Image 227. LUNGS: COPD: Severity: None Fibrosis: Severity: None Lymph nodes: None Other findings: None RIGHT PLEURAL SPACE: Effusion: None Calcification: None Thickening: None Pneumothorax: None LEFT PLEURAL SPACE: Effusion: None Calcification: None Thickening: None Pneumothorax: None HEART: Heart Size: Normal Coronary calcification: Moderate Pericardial effusion: None OTHER FINDINGS: Upper abdomen: Normal Bony thorax: No Supraclavicular region: Normal Other: Ascending thoracic aorta at the level the main pulmonary artery measures 3.7 cm. The main pul monary artery at the bifurcation measures 2.4 cm. IMPRESSION: 1. No suspicious change suggest primary or metastatic disease. FOLLOW UP CT CHEST RECOMMENDATION: Follow-up low-dose CT chest one year CT LUNG RAD: Lung-Rad 2 Benign Appearance or Behavior
== END | disposition home or self-care (01) ==
LOC: RADCTMAIN 07:46
PROVIDERS: ATTEND Family Medicine
DX: Z12.2 Encounter for screening for malignant neoplasm of respiratory organs (principal); F17.210 Nicotine dependence, cigarettes, uncomplicated
CPT/HCPCS: 71271

== ENCOUNTER → 2024-03-22 | Outpatient (CLI) | payer MEDICARE ==
--- NOTE | 2024-03-22 09:37 | US ---
EXAMINATION TYPE: US Aorta Screening DATE OF EXAM: 03/22/2024 COMPARISON: CT abdomen and pelvis 09/23/2022 CLINICAL INDICATION: Male, 73 years old with history of Z13.6 ENCOUNTER FOR SCREENING FOR CARDIOVASCU LAR D; AAA screening TECHNIQUE: Multiple sonographic images of the abdominal aorta are obtained. FINDINGS: EXAM MEASUREMENTS: Abdominal Aorta: Proximal: 1.9 x 2.1 cm Mid: 2.2 x 2.9 cm Distal: 1.8 x 1.7 cm Bifurcation: Right Iliac: 1.2 cm Left Iliac: 1.3 cm NOZZLE CEMENT SPRAYER HELPER NOTES: IMPRESSION: Ectasia of the mid abdominal aorta measuring up to 2.9 cm without criteria for abdominal aortic aneur ysm.
== END | disposition home or self-care (01) ==
LOC: RADUSWWP 08:50
PROVIDERS: ATTEND Family Medicine
DX: Z13.6 Encounter for screening for cardiovascular disorders (principal); I77.811 Abdominal aortic ectasia; Z87.891 Personal history of nicotine dependence
CPT/HCPCS: 76706

== ENCOUNTER → 2024-04-06 | Outpatient (CLI) | payer MEDICARE ==
--- NOTE | 2024-04-24 23:02 | P.PCN ---
Date of Procedure: 04/06/24 Operative Findings: Home sleep study testing Date of service is 04/06/2024 Pertinent history This is a 73-year-old male patient presented with excessive fatigue and tiredness for the past 2 years. No symptoms followed a previous COVID-19 infection and has not improved since. Home sleep study was ordered to rule out the possibility of obstructive sleep apnea contributing to his chronic fatigue and sleepiness. Pertinent physical findings The patient has a body mass index of 26.9 with a weight of 177 pounds Technical description The [employer] ApneaLink system was used to complete this home sleep study. This is a type III home sleep study. Total recording duration was 8 hours and 7 minutes. The study started at 10:45 PM and ended at 6:53 AM. There was a total of 7 hours and 50 minutes of flow monitoring and 7 hours and 31 minutes of oxygen saturation monitoring. As such, this was an adequate study. Results The patient encountered a total of 48 obstructive apneas and 58 obstructive hypopneas. The resulting AHI was 14.6 and this is consistent with mild obstructive sleep apnea. Oxygenation analysis The patient's minimum pulse ox was 87% with an average pulse ox during sleeping at 94%. Baseline pulse ox while awake was 99%. Cardiac summary The average heart rate was 60 with a heart rate of 52 and a maximum heart rate of 157 Assessment Obstructive sleep apnea, mild in severity with an AHI of 14.6 Chronic fatigue with limited sleepiness Hypertension BPH Previous COVID-19 infection Plan Patient has a component of mild obstructive sleep apnea. This was discussed with the patient and treatment options will be also discussed. Obviously, the patient has been feeling excessively tired. No significant comorbid conditions contributing to this problem. It may be worthwhile to give the patient a trial of APAP and accordingly decide if treatment of mild obstructive sleep apnea will be of any clinical benefit for this patient. If agreeable, we will proceed with a trial of APAP treatment with pressures of 5/15 cm of water with a short-term follow-up.
== END ==
LOC: 3 N SLEEP 10:42
PROVIDERS: ATTEND Internal Medicine Critical Care Medicine
DX: G47.33 Obstructive sleep apnea (adult) (pediatric) (principal); R53.83 Other fatigue; I10 Essential (primary) hypertension; N40.0 Benign prostatic hyperplasia without lower urinary tract symptoms; Z86.16 Personal history of COVID-19; Z79.899 Other long term (current) drug therapy

== ENCOUNTER → 2025-03-28 | Outpatient (CLI) | payer MEDICARE ==
--- NOTE | 2025-03-28 10:36 | CTL ---
EXAMINATION TYPE: CT Low Dose Lung DATE OF EXAM: 03/28/2025 10:19 AM COMPARISON: None. CLINICAL INDICATION: Male, 74 years old with history of Z12.2, F17.210 NICOTINE DEPENDENCE, CIGARETTE S, UN; PT SMOKED 0.5 PK PER DAY FOR 50 YRS,STILL SMOKES, history of tobacco use. TECHNIQUE: Multiple axial non-contrast scans were obtained from approximately the lung apices through the upper abdomen. Coronal and sagittal reformatted images were obtained. Low dose technique was uti lized. MIP were created on a separate workstation and submitted for review. CT DLP: 94.2 mGycm, Automated exposure control for dose reduction was used. CT Contrast: Contrast used: None Oral contrast used: None FINDINGS: Lack of intravenous contrast and low dose technique limits the evaluation of the vascular and soft ti ssue structures. LUNGS: No evidence of pulmonary fibrosis. No evidence of focal consolidation, pneumothorax or pleural effusion. Centrilobular emphysema changes. Nodules: RUL: None. RML: 5 mm series 4 image 193, stable. RLL: None. CHANDRAKANT: None. LLL: Calcified granuloma near the diaphragm series 4 image 245. AIRWAY: Patent and unremarkable. HEART: Size within normal limits. Moderate coronary artery calcifications present. Thickening and ca lcification of aortic valve present. MEDIASTINUM: No gross evidence of adenopathy. VASCULATURE: No aortic aneurysm. MUSCULOSKELETAL: Severe disc degeneration changes are present throughout the thoracolumbar spine. Alicia dging syndesmophytes throughout the spine compatible with diffuse idiopathic skeletal hyperostosis. R emote appearing left-sided rib injuries was completely osseous fusion.r SOFT TISSUES/LYMPH NODES: Unremarkable. LOWER NECK: No significant findings. UPPER ABDOMEN: No significant findings. IMPRESSION: 1. No clinically significant pulmonary nodules. 2. Mild emphysema. 3. Moderate coronary artery atherosclerosis. 4. Moderate aortic valve calcifications. CT LUNG RAD AND CT CHEST RECOMMENDATION: Lung-Rad 2 Benign Appearance or Behavior: Continue annual sc reening with LDCT in 12 months. S Modifier (other clinically significant findings): None Recommend smoking cessation (if current smoker), or continuation of smoking cessation (if prior smoke r). Annual screening for lung cancer with low-dose computed tomography is recommended in adults ages 55 to 77 years who have a 30 pack-year smoking history and currently smoke or have quit within the pa st 15 years. Screening should be discontinued once a person has not smoked for 15 years or develops a health problem that substantially limits life expectancy or the ability or willingness to have curat livia lung surgery. Lung rads 2021 [email or web address] [facility], , 03/28/2025 10:34 AM
== END | disposition home or self-care (01) ==
LOC: RADCTMAIN 09:33
PROVIDERS: ATTEND Family Medicine
DX: Z12.2 Encounter for screening for malignant neoplasm of respiratory organs (principal); F17.210 Nicotine dependence, cigarettes, uncomplicated; J43.2 Centrilobular emphysema; I25.10 Atherosclerotic heart disease of native coronary artery without angina pectoris; I35.8 Other nonrheumatic aortic valve disorders
CPT/HCPCS: 71271